=== PATIENT | female | born 2000 | race Caucasian/White ===

== ENCOUNTER → 2020-08-21 | Day surgery (SDC) | payer OTHER ==
[~2020-08-21] VITALS: Ht 182.9 cm; Wt 116.6 kg
[~2020-08-21] MED LIST: COLACE 100MG C100 MG PO; ERYTHROMYCIN O3.5 GM OU; NORCO 7.5-3251 EACH PO; PROTONIX40 MG PO; ZOFRAN4 MG PO
== END | disposition home or self-care (01) ==
LOC: OR 07:14
DX: S43.402A Unspecified sprain of left shoulder joint, initial encounter (principal); E66.9 Obesity, unspecified; Z90.49 Acquired absence of other specified parts of digestive tract; Y93.72 Activity, wrestling; Z79.899 Other long term (current) drug therapy
CPT/HCPCS: 84703; C1713; J0171; J0592; J0690; J1100; J1170; J2250; J2405; J2704; J2795; J7120

== ENCOUNTER 2021-09-12 13:08 | Emergency (ER) | payer OTHER ==
[2021-09-12 14:09] LABS: HEMOGLOBIN 11.5 gm/dl (12.3-15.3); RED BLOOD COUNT 5.26 M/UL (4.00-5.10); WHITE BLOOD COUNT 8.4 K/UL (4.5-11.0)
[2021-09-12 14:37] LABS: BUN/CREATININE RATIO 9 (0-10)
== END 2021-09-12 15:24 | disposition home or self-care (01) ==
LOC: ER1 13:08
PROVIDERS: Family Medicine
DX: R07.89 Other chest pain (principal); I10 Essential (primary) hypertension
CPT/HCPCS: 71045; 80048; 82550; 82553; 84484; 84703; 85025; 85379; 93005; 99285

== ENCOUNTER → 2021-11-04 | Outpatient (CLI) | payer OTHER | LOC: HEART 5 10:54 | DX: R07.9 Chest pain, unspecified (principal) ==

== ENCOUNTER → 2021-12-01 | Outpatient (CLI) | payer OTHER | LOC: HEART 5 14:26 | DX: R00.2 Palpitations (principal) ==